=== PATIENT | male | born 1985 | race Two or more races ===

== ENCOUNTER 2020-04-28 00:28 | Emergency (ER) | payer SELFPAY ==
[~2020-04-28] VITALS: Ht 175.3 cm; Wt 63.5 kg
[2020-04-28 01:27] LABS: Basophils # (auto) 0 10 ^3/uL (0-0.2); Basophils % (auto) 0.3 % (0.0-2.0); Eosinophils # (auto) 0 10 ^3/uL (0-0.8); Eosinophils % (auto) 0.3 % (0.0-7.0); Hematocrit 47.3 % (41.0-53.0); Hemoglobin 16.4 g/dL (13.5-17.5); Lymphocytes # (auto) 0.7 10 ^3/uL (0.4-5.4); Lymphocytes % (auto) 6.8 % (10.0-50.0); Mean Corpuscular Hemoglobin 31.2 pg (28.0-32.0); Mean Corpuscular Hgb Conc. 34.6 g/dL (32.0-36.0); Mean Corpuscular Volume 90.1 fL (80.0-100.0); Monocytes # (auto) 0.3 10 ^3/uL (0-1.3); Monocytes % (auto) 3.1 % (0.0-12.0); Neutrophils # (auto) 9.4 10 ^3/uL (1.6-8.6); Neutrophils % (auto) 89.5 % (37.0-80.0); Platelet Count (auto) 227 10^3/uL (140-450); Red Blood Cells 5.25 10^6/uL (4.5-5.90); Red Cell Distribution Width 12.4 % (11.8-14.3); White Blood Cell 10.5 10^3/uL (4.4-10.8)
[2020-04-28 01:47] LABS: BUN/Creatinine Ratio 10.3; Calcium 8.1 mg/dL (8.5-10.1); Potassium 3.3 mmol/L (3.5-5.1)
[2020-04-28 01:50] LABS: Bilirubin, Total 0.4 mg/dL (0.2-1.0); Total Protein 6.2 g/dL (6.4-8.2)
[2020-04-28 07:07] LABS: Urine WBC None Seen /hpf (0 - 3)
[2020-04-28 07:24] LABS: Urine Bacteria NONE SEEN /hpf (None Seen); Urine Blood Negative /uL (Negative); Urine Mucus FEW (None Seen); Urine Specific Gravity 1.026 (1.001-1.035)
[2020-04-28] MEDS ORDERED: SODIUM CHLORIDE 0.9% 1,000 ML IVB ONE (07:35)
[2020-04-28] MEDS ORDERED: METOCLOPRAMIDE HCL 5MG/ml INJ 2ml VIAL IV ONE (07:45)
[2020-04-28] MEDS ORDERED: POTASSIUM EFFERVESENT TAB 25 MEQ PO ONE (07:45)
[2020-04-28] MEDS ORDERED: KETOROLAC TROMETH 30 MG/ML 1ML VIAL IV ONE (07:45)
[2020-04-28 12:08] VITALS: BP 110/58
== END 2020-04-28 12:15 | disposition home or self-care (01) ==
LOC: EDBD 00:28 → EDSEX 00:28 → ER 00:28
DX: K40.90 Unilateral inguinal hernia, without obstruction or gangrene, not specified as recurrent (principal); K44.9 Diaphragmatic hernia without obstruction or gangrene; K80.20 Calculus of gallbladder without cholecystitis without obstruction; E44.0 Moderate protein-calorie malnutrition; E87.6 Hypokalemia; R11.2 Nausea with vomiting, unspecified; Z68.20 Body mass index [BMI] 20.0-20.9, adult
CPT/HCPCS: 36415; 74176; 80053; 81001; 83690; 83735; 85025; 96361; 96374; 96375; 99285; J1885; J2765; J7030